=== PATIENT | male | born 1965 | race Caucasian/White ===

== ENCOUNTER 2018-02-07 19:02 | Emergency (ER) | payer OTHER ==
[2018-02-07 19:08] VITALS: BP 159/87; PULSE 75; TEMP 99; BMI 28.2
--- NOTE | 2018-02-07 19:08 | PDOC ---
Rapid Medical Evaluation Chief Complaint: Back Pain Time Seen by Provider: 02/07/18 19:05 Medical Evaluation: Allergies Allergy/AdvReac Type Severity Reaction Status Date / Time No Known Allergies Allergy Verified 02/10/16 14:29 02/07/18 19:07 I have performed a brief in person evaluation of this patient. This patient presents with a CC of: back pain Pt is a 52 Yo male who states that he fell at work last week onto a generator onto his lower back. He denies hitting his head and denies LOC. PE: Skin: Clear Lungs: Clear Heart: RRR Abd: No pain MS: Moves all extremities without difficulty. pt has pain on the lumbar spine Neuro: Alert and oriented Psych: Appropriate affect I have ordered the following: Lumbar spine xray The patient will proceed to the [facility] for further evaluation. Discharge Disposition - Diagnosis Back pain Qualifiers: Back pain location: low back pain Chronicity: acute Back pain laterality: unspecified Sciatica presence: without sciatica Qualified Code(s): M54.5 - Low back pain - Referrals Referrals: Akila Loo MD [Primary Care Provider] - - Patient Instructions - Post Discharge Activity
--- NOTE | 2018-02-07 21:10 | PDOC ---
History of Present Illness - General Chief Complaint: Back Pain Stated Complaint: FALL /JOB INJURY Time Seen by Provider: 02/07/18 19:05 - History of Present Illness Initial Comments: 02/07/18 21:07 52-year-old male with a past medical history significant for dyslipidemia presents for lower back pain. He does have mild left leg radicular symptoms about the anterior aspect into the hip. He states 5 days ago he fell off the top of the truck onto a generator contusing his lower back he's had increasing lower back pain since. No loss of bowel bladder function or saddle paresthesias Past History - Past Medical History Allergies/Adverse Reactions: Allergies Allergy/AdvReac Type Severity Reaction Status Date / Time No Known Allergies Allergy Verified 02/07/18 19:08 Home Medications: Ambulatory Orders Cyclobenzaprine HCl [Flexeril 10 mg] 10 mg PO HS PRN #10 tablet 02/07/18 Ibuprofen [Motrin -] 600 mg PO TID #30 tablet 02/07/18 Simvastatin 40 mg PO ASDIR 02/07/18 COPD: No Hypercholesterolemia: Yes - Surgical History Abdominal Surgery: Yes (HERNIA REPAIR) Appendectomy: Yes - Suicide/Smoking/Psychosocial Hx Smoking History: Never smoked Review of Systems - Review of Systems Musculoskeletal: Yes: Back Pain Neurological: No: Numbness, Paresthesia, Tingling *Physical Exam - Vital Signs Last Vital Signs Temp Pulse Resp BP Pulse Ox 99 F 75 18 159/87 98 02/07/18 19:04 02/07/18 19:04 02/07/18 19:04 02/07/18 19:04 02/07/18 19:04 - Physical Exam Comments: 02/07/18 21:08 Lumbar spine skin color and temperature are normal range of motion is decreased he has mild midline tenderness about L4 and L5 moderate paralumbar musculature spasm 5 out of 5 strength in bilateral lower extremities without gross sensorimotor deficits positive straight leg raise test on the left negative on the right thighs and calves are soft and nontender he is neurovascularly intact ED Treatment Course - RADIOLOGY Radiology Studies Ordered: Category Date Time Status LUMBAR SPINE CT W/O CONTRAST [CT] Stat CT Scan 02/07/18 19:45 Completed Medical Decision Making - Medical Decision Making 02/07/18 21:08 Strays are suspicious for fracture at L4-L5 CAT scan is negative this is a lumbar contusion *DC/Admit/Observation/Transfer Diagnosis at time of Disposition: Contusion, back Back pain Qualifiers: Back pain location: low back pain Chronicity: acute Back pain laterality: unspecified Sciatica presence: without sciatica Qualified Code(s): M54.5 - Low back pain - Discharge Dispostion Disposition: HOME Condition at time of disposition: Stable Decision to Admit order: No - Referrals Referrals: Akila Loo MD [Primary Care Provider] - Twan Fraire MD [Staff Physician] - - Patient Instructions Printed Discharge Instructions: Low Back Pain, DI for Low Back Pain, Contusion Additional Instructions: The anti-inflammatory as directed one tablet 3 times a day with food discontinue the medication and advised stomach. The medicine that is the muscle relaxers one tablet before bedtime I will make you sleepy. Return to the emergency room should symptoms worsen or go unresolved otherwise follow-up with spine surgery in 2-3 days for further evaluation and treatment options. - Post Discharge Activity
== END 2018-02-07 21:17 | disposition home or self-care (01) ==
LOC: JERFT 19:02
DX: S30.0XXA Contusion of lower back and pelvis, initial encounter (principal); W17.89XA Other fall from one level to another, initial encounter; Y93.89 Activity, other specified; Y92.69 Other specified industrial and construction area as the place of occurrence of the external cause; Y99.0 Civilian activity done for income or pay
CPT/HCPCS: 72100-TC-FY; 72131-TC; 99281-25

== ENCOUNTER 2018-09-12 15:43 | Inpatient (IN) | payer OTHER | END 2018-09-15 14:23 | disposition home or self-care (01) | LOC: J8W 09-13 00:45 → JER 15:43 → JERBED 19:25 ==

== ENCOUNTER 2019-04-02 06:45 | Day surgery (SDC) | payer OTHER ==
[2019-03-29 17:31] VITALS: BMI 25.7
[2019-04-02] MEDS ORDERED: MIDAZOLAM HCL 2 MG/2 ML SINGLE DOSE VIAL ONE (08:56)
[2019-04-02] MEDS ORDERED: PROPOFOL 20 ML ONE (08:56)
[2019-04-02] MEDS ORDERED: KETOROLAC TROMETHAMINE 30 MG/1 ML VIAL ONE (09:11)
[2019-04-02 09:45] VITALS: TEMP 98.2
--- NOTE | 2019-04-02 10:11 | OP ---
Operative Note - Note: Operative Date: 04/02/19 Pre-Operative Diagnosis: Left renal stone Operation: Left ESWL Findings: 7 mm mid pole Left renal stone Post-Operative Diagnosis: Same as Pre-op Anesthesia: Fractional Estimated Blood Loss (mls): 0 Drains, Volume Out (mls): 0 Operative Report Dictated: Yes
[2019-04-02 11:21] VITALS: BP 116/60; PULSE 72
--- NOTE | 2019-04-02 18:23 | OP ---
DATE OF OPERATION: 04/02/2019 PREOPERATIVE DIAGNOSIS: Left renal stone. POSTOPERATIVE DIAGNOSIS: Left renal stone. PROCEDURE: Left extracorporeal shock-wave lithotripsy. ATTENDING: Vilma Elliott MD ANESTHESIA: Fractional. DESCRIPTION OF PROCEDURE: The patient was brought in the operating room and placed in a supine position on the operating room table. Ultrasonography and fluoroscopy were performed. A 7-mm left mid pole stone was identified. Anesthesia and preoperative antibiotics were administered. Patient underwent shock-wave lithotripsy; 2500 impulses at 17 joules of power were administered to the stone. Excellent fragmentation was noted under real time ultrasonography and fluoroscopy. No complications noted. DISPOSITION: To recovery room. VILMA ELLIOTT M.D. [id number]
== END 2019-04-02 11:38 | disposition home or self-care (01) ==
LOC: JASU-SURG 06:45
PROVIDERS: ATTEND Urology
PROC: 0TF4XZZ Fragmentation in Left Kidney Pelvis, External Approach (ICD-10-PCS; principal; 2019-04-02 08:45)
DX: N20.0 Calculus of kidney (principal)

== ENCOUNTER 2019-06-13 09:21 | Emergency (ER) | payer OTHER ==
[2019-06-13 09:42] VITALS: BP 121/67; PULSE 72; TEMP 98.1; BMI 25.8
[2019-06-13] MEDS ORDERED: IBUPROFEN 600 MG TABLET (FP) PO ONE ×2 (10:27→10:29)
[2019-06-13] MEDS ORDERED: DIPHTH,PERTUSS(ACELL),TET 0.5 ML DISP.SYRIN IM ONE ×2 (10:43→11:37)
--- NOTE | 2019-06-13 10:54 | PDOC ---
History of Present Illness - General Chief Complaint: Wound Stated Complaint: INJURY Time Seen by Provider: 06/13/19 09:51 History Source: Patient Exam Limitations: No Limitations Past History - Travel Traveled outside of the country in the last 30 days: No Close contact w/someone who was outside of country & ill: No - Past Medical History Allergies/Adverse Reactions: Allergies Allergy/AdvReac Type Severity Reaction Status Date / Time No Known Allergies Allergy Verified 06/13/19 09:39 Home Medications: Ambulatory Orders Simvastatin 40 mg PO ASDIR 02/07/18 Anemia: No Asthma: No Cancer: No Cardiac Disorders: No CVA: No COPD: No CHF: No Dementia: No Diabetes: No GI Disorders: No Disorders: Yes (BPH, renal stones) HTN: No Hypercholesterolemia: Yes Liver Disease: No Seizures: No Thyroid Disease: No - Surgical History Abdominal Surgery: Yes (HERNIA REPAIR) Appendectomy: Yes Cardiac Surgery: No Cholecystectomy: No Lung Surgery: No Neurologic Surgery: No Orthopedic Surgery: No - Psycho Social/Smoking Cessation Hx Smoking History: Never smoked Have you smoked in the past 12 months: No If you are a former smoker, when did you quit?: 15 YEARS AGO Hx Alcohol Use: No Drug/Substance Use Hx: No Substance Use Type: None Hx Substance Use Treatment: No Review of Systems - Review of Systems Able to Perform ROS?: Yes Comments:: 06/13/19 19:57 CONSTITUTIONAL: Absent: fever, chills, diaphoresis, generalized weakness, malaise, loss of appetite HEENT: Absent: rhinorrhea, nasal congestion, throat pain, throat swelling, difficulty swallowing, mouth swelling, ear pain, eye pain, visual Changes CARDIOVASCULAR: Absent: chest pain, loss of consciousness, palpitations, irregular heart rate, peripheral edema RESPIRATORY: Absent: cough, shortness of breath, dyspnea with exertion, orthopnea, wheezing, stridor, hemoptysis GASTROINTESTINAL: Absent: abdominal pain, abdominal distension, nausea, vomiting, diarrhea, constipation, melena, hematochezia GENITOURINARY: Absent: dysuria, frequency, urgency, hesitancy, hematuria, flank pain, genital pain MUSCULOSKELETAL: Present R 3rd finger pain Absent: myalgia, arthralgia, joint swelling SKIN: Present: abrasion to R3rd finger Absent: rash, itching, pallor HEMATOLOGIC/IMMUNOLOGIC: Absent: easy bleeding, easy bruising, lymphadenopathy, frequent infections ENDOCRINE: Absent: unexplained weight gain, unexplained weight loss, heat intolerance, cold intolerance NEUROLOGIC: Absent: headache, focal weakness or paresthesias, dizziness, unsteady gait, seizure, mental status changes, bladder or bowel incontinence PSYCHIATRIC: Absent: anxiety, depression, suicidal or homicidal ideation, hallucinations. Is the patient limited Upper Sorbian proficient: No *Physical Exam - Vital Signs Last Vital Signs Temp Pulse Resp BP Pulse Ox 98.1 F 72 16 121/67 99 06/13/19 09:40 06/13/19 09:40 06/13/19 09:40 06/13/19 09:40 06/13/19 09:40 - Physical Exam 06/13/19 19:58 GENERAL: The patient is awake, alert, and fully oriented, in no acute distress. HEAD: Normal with no signs of trauma. EYES: Pupils equal, round and reactive to light, extraocular movements intact, sclera anicteric, conjunctiva clear. EXTREMITIES: Patient with tenderness palpation of the right third PIP with associated swelling. Patient is full range of motion of the right hand. Normal range of motion, no edema. NEUROLOGICAL:Normal speech, normal gait. PSYCH: Normal mood, normal affect. SKIN: Abrasion noted to the volar aspect of the right third finger. No active bleeding. Warm, Dry, normal turgor, no rashes or lesions noted. ED Treatment Course - RADIOLOGY Radiology Studies Ordered: Category Date Time Status HAND- RIGHT [RAD] Stat Radiology 06/13/19 10:26 Ordered - Medications Given in the ED: ED Medications Discontinued Medications Generic Name Dose Route Start Last Admin Trade Name Freq PRN Reason Stop Dose Admin Ibuprofen 600 mg 06/13/19 10:27 06/13/19 10:30 Motrin - PO 06/13/19 10:28 600 mg ONCE ONE Administration Medical Decision Making - Medical Decision Making 06/13/19 19:59 Patient is a 53-year-old male who presents the ER for the right third finger pain. He states that metal pipe fell on his hand and is now swollen. He also notes he has an abrasion to his hand. He does not member the date of his last tetanus shot. The patient is left-hand dominant. A/P: Right third finger pain On exam patient has swelling to the right third finger with pain at the PIP. there is an abrasion to the volar aspect of the right third finger with no active bleeding. X-ray shows no fractures of the right third finger. Tetanus shot updated Discharge home with supportive therapy and hand follow-up. I discussed the physical exam findings, ancillary test results and final diagnoses with the patient. I answered all of the patient's questions. The pat ient was satisfied with the care received and felt comfortable with the discharge plan and treatment plan. The Patient agrees to follow up with the primary care physician/specialist within 24-72 hours. Return precautions were given. Discharge - Discharge Information Problems reviewed: Yes Clinical Impression/Diagnosis: Abrasion, Hand pain, right Condition: Stable Disposition: HOME - Admission No - Follow up/Referral Referrals: Akila Loo MD [Primary Care Provider] - Cesar Mayer MD [Staff Physician] - - Patient Discharge Instructions Patient Printed Discharge Instructions: DI for Hand Pain Additional Instructions: You were evaluated for your hand pain today. There are no broken bones in your x-ray. Please keep the abrasion clean and dry. Wash your hands frequently. Apply ice for 20-minute intervals to help reduce the swelling of the finger. Follow-up with orthopedics this week if your symptoms are not improving. Referrals been attached. Return to the ER for worsening pain, numbness and tingling to the extremity or if you have any changes in your symptoms. - Post Discharge Activity Work/Back to School Note: Back to Work
== END 2019-06-13 11:52 | disposition home or self-care (01) ==
LOC: JERFT 09:21
PROC: 3E0234Z Introduction of Serum, Toxoid and Vaccine into Muscle, Percutaneous Approach (ICD-10-PCS; principal; 2019-06-13)
DX: M79.641 Pain in right hand (principal); N40.0 Benign prostatic hyperplasia without lower urinary tract symptoms; N20.0 Calculus of kidney; E78.00 Pure hypercholesterolemia, unspecified; Z87.891 Personal history of nicotine dependence
CPT/HCPCS: 73130-TC-RT-FY; 90715; 99283-25

== ENCOUNTER 2019-10-01 05:09 | Day surgery (SDC) | payer OTHER ==
[2019-09-28 16:54] VITALS: BMI 27.9
[2019-10-01] MEDS ORDERED: MIDAZOLAM HCL 2 MG/2 ML SINGLE DOSE VIAL ONE (15:12)
[2019-10-01] MEDS ORDERED: KETOROLAC TROMETHAMINE 30 MG/1 ML VIAL ONE (15:12)
--- NOTE | 2019-10-01 15:51 | OP ---
Operative Note - Note: Operative Date: 10/01/19 Pre-Operative Diagnosis: Right renal stone Operation: Right ESWL Findings: 5 mm mid pole Right renal stone Post-Operative Diagnosis: Same as Pre-op Surgeon: Santiago Alvarado Anesthesia: Fractional Estimated Blood Loss (mls): 0 Operative Report Dictated: Yes
[2019-10-01 17:01] VITALS: BP 119/71; PULSE 68; TEMP 97.7
--- NOTE | 2019-10-02 09:50 | OP ---
DATE OF OPERATION: 10/01/2019 PREOPERATIVE DIAGNOSIS: Right renal stone. POSTOPERATIVE DIAGNOSIS: Right renal stone. PROCEDURE: Right extracorporeal shock wave lithotripsy. ATTENDING: Vilma Elliott MD ANESTHESIA: Fractional. DESCRIPTION OF PROCEDURE: Patient was brought into the operating room, placed in the supine position on the operating room table. Ultrasonography and fluoroscopy were performed. A 5-mm right midpole stone was identified. Anesthesia and preoperative antibiotics were then administered. Shock wave lithotripsy was then performed. Next, 2500 impulses, 17 joules of power was administered to the stone with excellent fragmentation noted under real time ultrasonography and fluoroscopy. No complications were noted. The patient tolerated the procedure very well. VILMA ELLIOTT M.D. [id number]
== END 2019-10-01 17:03 | disposition home or self-care (01) ==
LOC: JASU-SURG 05:09
PROVIDERS: ATTEND Urology
PROC: 0TF3XZZ Fragmentation in Right Kidney Pelvis, External Approach (ICD-10-PCS; principal; 2019-10-01 14:00)
DX: N20.0 Calculus of kidney (principal)

== ENCOUNTER 2020-09-21 23:27 | Emergency (ER) | payer OTHER ==
[2020-09-21 23:38] VITALS: BP 111/60; PULSE 87; BMI 26.6
[2020-09-22 01:25] LABS: EPI CELLS 1 /uL (0-25.1); HYALINE CASTS 1 /uL (0-3.1); PH,URINE 5.5 (5.0-8.0); URINE APPEARANCE CLEAR; URINE BACTERIA 253 /uL (0-1359); URINE BILIRUBIN NEGATIVE (NEGATIVE); URINE COLOR YELLOW; URINE GLUCOSE (UA) NEGATIVE (NEGATIVE); URINE KETONE NEGATIVE (NEGATIVE); URINE LEUK ESTERASE 1+ (NEGATIVE); URINE NITRITE NEGATIVE (NEGATIVE); URINE PROTEIN TRACE (NEGATIVE); URINE RBC 20 /uL (0-23.9); URINE WBC 138 /uL (0-25.8)
[2020-09-22] MEDS ORDERED: IBUPROFEN 600 MG TABLET (FP) PO ONE ×2 (01:37→01:54)
[2020-09-22] MEDS ORDERED: NITROFURANTOIN MACROCRYSTAL 50 MG CAPSULE (FP) PO ONE (01:45)
[2020-09-22] MEDS ORDERED: NITROFURANTOIN MACROCRYSTAL 50 MG CAPSULE (FP) ONE (01:54)
[2020-09-22 02:41] VITALS: TEMP 98.8
== END 2020-09-22 02:50 | disposition home or self-care (01) ==
LOC: JER 23:27
DX: N39.0 Urinary tract infection, site not specified (principal)
CPT/HCPCS: 81003; 87086; 87186; 99283-25

== ENCOUNTER 2021-03-19 22:22 | Observation (INO) | payer OTHER ==
[2021-03-19 22:28] VITALS: TEMP 97.5; BMI 27.1
[2021-03-19 23:04] LABS: BASO % 0.2 % (0-2.0); EOS % 2.5 % (0-4.5); HEMATOCRIT 39.6 % (35.4-49); HEMOGLOBIN 13.3 GM/dL (11.7-16.9); LYMPH % 35.1 % (8-40); MCH 30.5 pg (25.7-33.7); MCHC 33.6 g/dl (32.0-35.9); MEAN CELL VOLUME 90.7 fl (80-96); MEAN PLT VOLUME 7.4 fl (7.5-11.1); MONO % 10.1 % (3.8-10.2); NEUT % 52.1 % (42.8-82.8); PLATELET COUNT 260 10^3/uL (134-434); RBC 4.36 M/mm3 (4.00-5.60); RDW 13.8 % (11.9-15.9)
[2021-03-19 23:15] LABS: INR 0.96 (0.83-1.09); PROTHROMBIN TIME (PATIENT) 11.2 SEC (9.7-13.0)
[2021-03-19 23:18] LABS: ACTIVATED PTT 28.3 SECONDS (25.2-36.5)
[2021-03-19 23:24] LABS: CHLORIDE 109 mmol/L (98-107); SODIUM 140 mmol/L (136-145)
[2021-03-19 23:27] LABS: ALBUMIN 3.4 g/dl (3.4-5.0); ANION GAP 7 MMOL/L (8-16); BLOOD UREA NITROGEN 18.5 mg/dL (7-18); CALCIUM 8.4 mg/dL (8.5-10.1); CO2 24 mmol/L (21-32); GLUCOSE,RANDOM 112 mg/dL (74-106); MAGNESIUM 2.5 mg/dL (1.8-2.4)
[2021-03-19 23:30] LABS: CREATININE 0.9 mg/dL (0.55-1.3); SGOT/AST 27 U/L (15-37); SGPT/ALT 33 U/L (13-61)
[2021-03-19 23:32] LABS: BILIRUBIN,TOTAL 0.4 mg/dL (0.2-1); TOT PROT 6.9 g/dl (6.4-8.2)
[2021-03-19 23:33] LABS: ALK PHOS 78 U/L (45-117)
[2021-03-20] MEDS ORDERED: ASPIRIN 81 MG CHEWABLE TABLETS PO ONE (01:52)
[2021-03-20] MEDS ORDERED: ACETAMINOPHEN 1000 MG/100 ML VIAL IVPB ONE (01:52)
[2021-03-20] MEDS ORDERED: ACETAMINOPHEN INJECTION 100 ML IVPB ONE (01:58)
[2021-03-20] MEDS ORDERED: ASPIRIN 81 MG CHEWABLE TABLETS ONE (01:58)
[2021-03-20] MEDS ORDERED: TAMSULOSIN HCL 0.4 MG CAP PO SCH (08:30)
[2021-03-20] MEDS ORDERED: TAMSULOSIN HCL 0.4 MG CAP ONE (09:05)
[2021-03-20] MEDS ORDERED: ENOXAPARIN NA (PORCINE) 40 MG/0.4 ML DISP.SYRIN SQ ONE (09:05)
[2021-03-20 09:57] LABS: BASO % 0.3 % (0-2.0); EOS % 2.4 % (0-4.5); HEMATOCRIT 39.6 % (35.4-49); HEMOGLOBIN 13.3 GM/dL (11.7-16.9); LYMPH % 30.2 % (8-40); MCH 30.6 pg (25.7-33.7); MCHC 33.6 g/dl (32.0-35.9); MEAN CELL VOLUME 91.1 fl (80-96); MEAN PLT VOLUME 7.3 fl (7.5-11.1); MONO % 6.8 % (3.8-10.2); NEUT % 60.3 % (42.8-82.8); PLATELET COUNT 240 10^3/uL (134-434); RBC 4.35 M/mm3 (4.00-5.60); WHITE BLOOD COUNT 5.2 K/mm3 (4.0-10.0)
[2021-03-20] MEDS ORDERED: ENOXAPARIN NA (PORCINE) 40 MG/0.4 ML DISP.SYRIN SQ SCH (10:00)
[2021-03-20 10:23] LABS: BLOOD UREA NITROGEN 14.6 mg/dL (7-18)
[2021-03-20 10:25] LABS: CALCIUM 8.6 mg/dL (8.5-10.1); PHOSPHOROUS 2.6 mg/dL (2.5-4.9)
[2021-03-20 10:26] LABS: CREATININE 0.9 mg/dL (0.55-1.3); MAGNESIUM 2.4 mg/dL (1.8-2.4)
[2021-03-20 16:46] VITALS: BP 116/74; PULSE 72
[2021-03-20] MEDS ORDERED: ATORVASTATIN CA 20 MG TABLET (FP) PO SCH (22:00)
== END 2021-03-20 16:46 | disposition home or self-care (01) ==
LOC: JER 22:22 → JERBED 03-20 03:50
PROVIDERS: ADMIT Internal Medicine; ATTEND Internal Medicine
PROC: 3E033NZ Introduction of Analgesics, Hypnotics, Sedatives into Peripheral Vein, Percutaneous Approach (ICD-10-PCS; principal; 2021-03-20)
PROC: 3E023GC Introduction of Other Therapeutic Substance into Muscle, Percutaneous Approach (ICD-10-PCS; 2021-03-20)
DX: R07.9 Chest pain, unspecified (principal); N40.0 Benign prostatic hyperplasia without lower urinary tract symptoms; N20.0 Calculus of kidney; M17.12 Unilateral primary osteoarthritis, left knee; R20.0 Anesthesia of skin; E78.5 Hyperlipidemia, unspecified; Z29.9 Encounter for prophylactic measures, unspecified; R07.1 Chest pain on breathing
CPT/HCPCS: 36415; 71046-TC-FY; 71275-TC; 80048; 80053; 82550; 82553; 83735; 84100; 84484; 85025; 85610; 85730; 93005; 93010; 93306-TC; 96372; 96374; 99285-25; C9803; G0378; J0131; Q9967; U0003; U0005

== ENCOUNTER 2022-05-26 21:40 | Emergency (ER) | payer OTHER ==
[2022-05-26 21:52] VITALS: BP 151/83; PULSE 62; RESP 19; TEMP 98; BMI 27.2
[2022-05-26] MEDS ORDERED: KETOROLAC TROMETHAMINE 30 MG/1 ML VIAL IM ONE (22:18)
[2022-05-26] MEDS ORDERED: KETOROLAC TROMETHAMINE 30 MG/1 ML VIAL ONE (22:20)
== END 2022-05-26 22:43 | disposition home or self-care (01) ==
LOC: JER 21:40
PROC: 3E023GC Introduction of Other Therapeutic Substance into Muscle, Percutaneous Approach (ICD-10-PCS; principal; 2022-05-26)
DX: M62.838 Other muscle spasm (principal)
CPT/HCPCS: 99284-25